=== PATIENT | female | born 1970 ===

== ENCOUNTER 2018-05-22 08:24 | Emergency (ER) | payer OTHER ==
[2018-05-22 08:33] VITALS: BP 144/85; PULSE 81; RESP 17; TEMP 98.1; O2SAT 97
--- NOTE | 2018-05-22 09:32 | C.PDOC ---
History Of Present Illness 47 year old female presents to ED for evaluation of bilateral breast pain that started yesterday, described as burning sensation L > R. She reports clear discharge from right breast yesterday. Denies redness, bumps, lumps, or fever. Denies chest pain, sob, rash. Denies similar episode in the past. Last menses for 16 years s/p hysterectomy. 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[employer]) History/Exam Limitations: no limitations Onset/Duration Of Symptoms: Days Current Symptoms Are (Timing): Still Present Additional History Per: Patient Past Medical History Reviewed: Historical Data, Nursing Documentation, Vital Signs Vital Signs: Last Vital Signs Temp 98.1 F 05/22/18 08:32 Pulse 81 05/22/18 08:32 Resp 17 05/22/18 08:32 BP 144/85 05/22/18 08:32 Pulse Ox 97 05/22/18 10:46 - Medical History PMH: Asthma Family History: States: Unknown Family Hx - Social History Hx Alcohol Use: No Hx Substance Use: No Review Of Systems Except As Marked, All Systems Reviewed And Found Negative. Constitutional: Negative for: Fever, Chills Musculoskeletal: Positive for: Other (Breast pain) Physical Exam - Physical Exam Appears: Non-toxic, No Acute Distress Skin: Normal Color, Warm, Dry Head: Atraumatic, Normacephalic Eye(s): bilateral: Normal Inspection, EOMI Nose: Normal Oral Mucosa: Moist Neck: Normal ROM, Supple Chest: Symmetrical, No Deformity, Tenderness (diffuse tenderness to bilateral breasts, no discharge, no dimpling, no erythema, no lumps), No Ecchymosis Cardiovascular: Rhythm Regular Respiratory: Normal Breath Sounds, No Rales, No Rhonchi, No Wheezing Gastrointestinal/Abdominal: Soft, No Tenderness Extremity: Normal ROM Neurological/Psych: Oriented x3, Normal Speech ED Course And Treatment O2 Sat by Pulse Oximetry: 97 (RA) Pulse Ox Interpretation: Normal Progress Note: Pt is being discharged home with instructions to 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 Disposition - Disposition Referrals: [facility] at [facility] [Outside] Disposition: HOME/ ROUTINE Disposition Time: 09:30 Condition: STABLE Additional Instructions: Jonah segura o la clnica en 1-3 snow sin falta, para mas evaluacin. [place] los medicamentos rod indicado. Volver a la taniya de emergencia en cualquier momento si los sntomas persisten o empeoran. Prescriptions: Naproxen [Naprosyn] 1 tab PO BID PRN #20 tab PRN Reason: Pain Instructions: Mastalgia (DC) Forms: Docin (Romansh) Print Language: TAJIK - Clinical Impression Clinical Impression: Pain of breast - PA / PLASTIC MANAGER / Resident Statement MD/DO has reviewed & agrees with the documentation as recorded. - Scribe Statement The provider has reviewed the documentation as recorded by the Scribe Swapna Arce All medical record entries made by the Scribe were at my direction and personally dictated by me. I have reviewed the chart and agree that the record accurately reflects my personal performance of the history, physical exam, medical decision making, and the department course for this patient. I have also personally directed, reviewed, and agree with the discharge instructions and disposition.
== END 2018-05-22 09:48 | disposition home or self-care (01) ==
LOC: C.ER 08:24
DX: N64.4 Mastodynia (principal)

== ENCOUNTER 2018-10-20 19:08 | Emergency (ER) | payer OTHER ==
[2018-10-20 19:17] VITALS: O2SAT 100
--- NOTE | 2018-10-20 19:33 | C.PDOC ---
Time Seen by Provider: 10/20/18 19:20 Chief Complaint (Nursing): Abdominal Pain Past Medical History Vital Signs: Last Vital Signs Temp 97.9 F 10/20/18 19:12 Pulse 91 H 10/20/18 19:12 Resp 20 10/20/18 19:12 BP 120/86 10/20/18 19:12 Pulse Ox 100 10/20/18 19:12 - Medical History PMH: Asthma Family History: States: Unknown Family Hx - Social History Hx Alcohol Use: No Hx Substance Use: No - Immunization History Hx Tetanus Toxoid Vaccination: No Hx Influenza Vaccination: No Hx Pneumococcal Vaccination: No ED Course And Treatment O2 Sat by Pulse Oximetry: 100 Progress - Data Reviewed Data Reviewed: Lab, Diagnostic imaging Disposition - Disposition
--- NOTE | 2018-10-20 19:35 | C.PDOC ---
History Of Present Illness 48 y/o female presents to the ER complaining of abdominal pain and nausea which has been present for the past 3 days. Patient states that the pain is localized to the LLQ. Patient reports that she had her last bm 2 days ago, she states that this is consistent with her normal pattern.Denies having vomiting, dysuria, hematuria, fever,and chills. Of note, patient has surgical history of and hysterectomy. Time Seen by Provider: 10/20/18 19:20 Chief Complaint (Nursing): Abdominal Pain History Per: Patient History/Exam Limitations: no limitations Onset/Duration Of Symptoms: Days Current Symptoms Are (Timing): Still Present Severity: Moderate Location Of Pain/Discomfort: LLQ Radiation Of Pain To:: None Associated Symptoms: Nausea. denies: Fever, Chills, Vomiting, Urinary Symptoms Past Medical History Reviewed: Historical Data, Nursing Documentation, Vital Signs Vital Signs: Last Vital Signs Temp 97.9 F 10/20/18 19:12 Pulse 91 H 10/20/18 19:12 Resp 20 10/20/18 19:12 BP 120/86 10/20/18 19:12 Pulse Ox 100 10/20/18 19:12 - Medical History PMH: Asthma Other Surgeries: Hx of surgeries Family History: States: No Known Family Hx - Social History Hx Alcohol Use: No Hx Substance Use: No - Immunization History Hx Tetanus Toxoid Vaccination: No Hx Influenza Vaccination: No Hx Pneumococcal Vaccination: No Review Of Systems Except As Marked, All Systems Reviewed And Found Negative. Constitutional: Negative for: Fever, Chills Gastrointestinal: Positive for: Nausea, Abdominal Pain. Negative for: Vomiting, Diarrhea Genitourinary: Negative for: Dysuria, Hematuria Physical Exam - Physical Exam Appears: Non-toxic, Other (mild distress) Skin: Normal Color, Warm, Dry Head: Atraumatic, Normacephalic Eye(s): bilateral: Normal Inspection Cardiovascular: Rhythm Regular Respiratory: Normal Breath Sounds, No Rales, No Rhonchi, No Wheezing Gastrointestinal/Abdominal: Soft, Tenderness (LUQ tenderness), No Guarding, No Rebound Neurological/Psych: Oriented x3, Normal Speech ED Course And Treatment - Laboratory Results Result Diagrams: 10/20/18 19:44 10/20/18 19:44 O2 Sat by Pulse Oximetry: 100 (RA) Pulse Ox Interpretation: Normal - CT Scan/US CT abd/pelvis Other Rad Studies (CT/US): Read By Radiologist, Radiology Report Reviewed CT/US Interpretation: EXAM: CT Abdomen with IV contrast. CLINICAL HISTORY: LLQ abdominal pain. TECHNIQUE: Axial computed tomography images of the abdomen and pelvis with intravenous contrast. 0.00 mGy-cm. CONTRAST: With; VISI 320 100MLS. COMPARISON: None provided. FINDINGS: LUNG BASES: Heart normal size, pulmonary bases well-aerated. LIVER: Unremarkable. GALLBLADDER AND BILE DUCTS: The gallbladder appears within normal limits. No radioopaque gallstones are seen. No biliary ductal dilatation is evident. PANCREAS: Unremarkable. SPLEEN: Unremarkable. ADRENAL GLANDS: Unremarkable. KIDNEYS, URETERS, AND BLADDER: The kidneys appear within normal limits. There is no hydronephrosis or hydroureter. No urinary calculi are seen. STOMACH AND BOWEL: Unremarkable appearance of the stomach and bowel. No evidence of bowel obstruction. No evidence suggesting enteritis or colitis. APPENDIX: No evidence of acute appendicitis on CT examination. PERITONEUM: No free fluid. No free air. LYMPH NODES: No lymphadenopathy is evident. VASCULATURE: No evidence of abdominal aortic aneurysm. BONES: No aggressive appearing osseous lesion. No acute osseous pathology evident. MISCELLANEOUS: Status post hysterectomy, no free pelvic fluid. IMPRESSION: 1. Status post hysterectomy, no free pelvic fluid. 2. Heart normal size, pulmonary bases well-aerated. 3. An inflammatory focus within the abdomen is not identified. . Electronically signed on Oct 20, 2018 10:08:08 PM EST by: Steven Voss M.D., Certified by [facility] Progress - Data Reviewed Data Reviewed: Lab, Diagnostic imaging Medical Decision Making Medical Decision Making: Plan: --Labs --UA --CT- Abd & Pelv. --Morphine IV --Zofran IV Disposition Counseled Patient/Family Regarding: Studies Performed, Diagnosis, Need For Followup, Rx Given - Disposition Referrals: [facility] [Outside] [facility] [Outside] Disposition: HOME/ ROUTINE Disposition Time: 22:10 Condition: IMPROVED Prescriptions: Dicyclomine [Bentyl] 20 mg PO TID PRN #12 tab PRN Reason: Pain Ondansetron ODT [Zofran ODT] 4 mg PO TID PRN #12 odt PRN Reason: Nausea/Vomiting Instructions: Acute Abdomen (Belly Pain), Adult (DC) Forms: [employer] (Yi) Print Language: ECUADOREAN - Clinical Impression Clinical Impression: Abdominal pain - Scribe Statement The provider has reviewed the documentation as recorded by the Wendiibe Bernabe Salgado Provider Attestation: All medical record entries made by the Wendiibe were at my direction and personally dictated by me. I have reviewed the chart and agree that the record accurately reflects my personal performance of the history, physical exam, medical decision making, and the department course for this patient. I have also personally directed, reviewed, and agree with the discharge instructions and disposition.
[2018-10-20] MEDS ORDERED: Morphine 4 MG/ML VIAL ONE (19:47)
[2018-10-20 19:50] LABS: BASO % 0.9 % (0.0-2.0); EOS # 0.1 K/uL (0.0-0.7); EOS % 1.2 % (0.0-4.0); HEMOGLOBIN 14.2 g/dL (11.0-16.0); LYMPH # 2.2 K/uL (1.0-4.3); MEAN CELL VOLUME 88.8 fL (81.0-99.0); MEAN CORPUSCULAR HEMOGLOBIN 29.9 pg (27.0-31.0); MEAN CORPUSCULAR HGB CONC 33.6 g/dL (33.0-37.0); MEAN PLATELET VOLUME 8.1 fL (7.2-11.7); MONO # 0.4 K/uL (0.0-0.8); MONO % 8.5 % (0.0-10.0); NEUT # 2.2 K/uL (1.8-7.0); NEUT % 44.4 % (50.0-75.0); RBC 4.76 Mil/uL (3.80-5.20); RED CELL DISTRIBUTION WIDTH 14.3 % (11.5-14.5); WHITE BLOOD COUNT 4.9 K/uL (4.8-10.8)
[2018-10-20 19:56] LABS: SQUAMOUS EPITHIAL 3 /hpf (0-5); URINE BILIRUBIN NEGATIVE (NEGATIVE); URINE BLOOD NEGATIVE (NEGATIVE); URINE CLARITY Clear (Clear); URINE COLOR Yellow (YELLOW); URINE GLUCOSE (UA) NORMAL (Normal); URINE LEUKOCYTE ESTERASE NEG Leu/uL (Negative); URINE PROTEIN NEGATIVE (NEGATIVE); URINE UROBILINOGEN NORMAL mg/dL (0.2-1.0)
[2018-10-20 20:23] LABS: ALB/GLOB RATIO 1.4 (1.0-2.1); ALBUMIN 4.6 g/dL (3.5-5.0); ALT/SGPT 19 U/L (9-52); AST/SGOT 25 U/L (14-36); BLOOD UREA NITROGEN 11 mg/dL (7-17); CALCIUM 9.3 mg/dl (8.6-10.4); GFR NON-AFRICAN AMERICAN > 60; LIPASE 65 U/L (23-300)
[2018-10-20] MEDS ORDERED: Barium Sulfate Susp 2.1% w/v, 2.0% w/w 450 mL Bottle PO ONE (20:45)
[2018-10-20] MEDS ORDERED: Iodixanol 320 MG/ML 200 ML BOTTLE IV ONE (20:46)
[2018-10-20 21:34] VITALS: RESP 16
[2018-10-20 22:42] VITALS: BP 122/74; PULSE 68; TEMP 98.2
--- NOTE | 2018-10-21 09:08 | CT ---
Date of service: 10/20/2018 PROCEDURE: CT Abdomen and Pelvis with and without intravenous contrast HISTORY: abd pain LUQ/LLQ COMPARISON: None. TECHNIQUE: Axial images of the abdomen were obtained in the pre contrast, portal venous and delayed phases of enhancement. Coronal and sagittal reformats were generated. Contrast dose: Radiation dose: Total exam DLP = 1105.96 mGy-cm. This CT exam was performed using one or more of the following dose reduction techniques: Automated exposure control, adjustment of the mA and/or kV according to patient size, and/or use of iterative reconstruction technique. FINDINGS: LOWER THORAX: Unremarkable. LIVER: Unremarkable. No gross lesion or ductal dilatation. GALLBLADDER AND BILE DUCTS: Unremarkable. PANCREAS: Unremarkable. No gross lesion or ductal dilatation. SPLEEN: Unremarkable. ADRENALS: Unremarkable. No mass. KIDNEYS AND URETERS: Unremarkable. No hydronephrosis. No solid mass. VASCULATURE: Unremarkable. No aortic aneurysm. No aortic atherosclerotic calcification or mural plaque present. BOWEL: Unremarkable. No obstruction. No gross mural thickening. APPENDIX: Normal appendix. PERITONEUM: Unremarkable. No free fluid. No free air. LYMPH NODES: Unremarkable. No enlarged lymph nodes. BLADDER: Unremarkable. REPRODUCTIVE: Hysterectomy. BONES: No acute fracture. OTHER FINDINGS: None. IMPRESSION: Hysterectomy. Unremarkable pre and post contrast enhanced CT of the abdomen and pelvis.
== END 2018-10-20 22:48 | disposition home or self-care (01) ==
LOC: C.ER 19:08
DX: R10.32 Left lower quadrant pain (principal)
CPT/HCPCS: 74177; 80053; 81001; 83690; 84703; 85025; 96374; 96375; 99284; J2270; J2405; Q9966

== ENCOUNTER 2018-11-26 19:17 | Emergency (ER) | payer OTHER ==
[2018-11-26] MEDS ORDERED: Albuterol-Ipratrop 3 mg / 0.5 (3 ml) UD ONE (19:42)
[2018-11-26 19:43] VITALS: BP 141/60; TEMP 99.6; O2SAT 100
[2018-11-26 19:47] VITALS: PULSE 100
[2018-11-26] MEDS ORDERED: Albuterol 0.083% Inhal Sol (2.5 mg/3 mL) UD INH STA (19:52)
[2018-11-26] MEDS ORDERED: Ipratropium 0.02% Inhal Soln (0.5 mg/2.5 ml) UD IH STA (19:55)
[2018-11-26] MEDS ORDERED: Ipratropium 0.02% Inhal Soln (0.5 mg/2.5 ml) UD IH ONE (20:16)
--- NOTE | 2018-11-26 20:16 | C.PDOC ---
History Of Present Illness 48 y/o female presents to the ED complaining of fever, headache, bodyaches, and nasal congestion for 3 days. Patient has PMHx of asthma and also reports wheezing. She has been using inhaler at home without relief. Otherwise she denies any chest pain, nausea, vomiting, diarrhea, rash, neck stiffness, or other complaints. HPI: Influenza Time Seen by Provider: 11/26/18 19:45 Chief Complaint: Flu-like Symptoms Chief Complaint (Provider): Flu-like Symptoms History Per: Patient Exam Limitations: no limitations Onset/Duration Of Symptoms: Days (x 3) Symptoms include: fever, headache, bodyaches, cough, nasal congestion Past Medical History Reviewed: Historical Data, Nursing Documentation, Vital Signs Vital Signs: Last Vital Signs Temp 99.6 F 11/26/18 19:35 Pulse 100 H 11/26/18 19:35 Resp 22 11/26/18 19:35 BP 141/60 11/26/18 19:35 Pulse Ox 100 11/26/18 19:35 - Medical History PMH: Asthma Surgical History: Family History: States: Unknown Family Hx - Social History Hx Alcohol Use: No Hx Substance Use: No - Immunization History Hx Tetanus Toxoid Vaccination: No Hx Influenza Vaccination: No Hx Pneumococcal Vaccination: No Review Of Systems Constitutional: Positive for: Fever. Negative for: Chills, Weakness Eyes: Negative for: Redness, Other (scleral icterus) ENT: Positive for: Nose Congestion. Negative for: Mouth Swelling Cardiovascular: Negative for: Chest Pain Respiratory: Positive for: Cough, Wheezing Gastrointestinal: Negative for: Nausea, Vomiting, Diarrhea Genitourinary: Negative for: Dysuria, Frequency, Hematuria Musculoskeletal: Positive for: Other (Body aches). Negative for: Neck Pain, Back Pain Skin: Negative for: Rash Neurological: Positive for: Headache. Negative for: Weakness, Numbness, Dizziness Physical Exam - Physical Exam Appears: Well, Non-toxic, No Acute Distress Skin: Normal Color, Warm, No Rash Head: Atraumatic, Normacephalic Eye(s): bilateral: Normal Inspection (no scleral icterus), PERRL, EOMI Oral Mucosa: Moist Throat: Normal (No injection or swelling), No Erythema, No Exudate, Other (airway is patent) Neck: Normal ROM, Supple Chest: Symmetrical Cardiovascular: Rhythm Regular (but mildly tachycardic), Other (Normal S1,S2) Respiratory: No Accessory Muscle Use, Wheezing (bilaterally), Other (Dry cough noted, No respiratory distress) Gastrointestinal/Abdominal: Soft, No Distention Back: Other (Ambulating with steady upright gait) Extremity: Bilateral: Atraumatic, Normal ROM Pulses: Left Radial: Normal (2+), Right Radial: Normal (2+) Neurological/Psych: Oriented x3, Normal Cranial Nerves Medical Decision Making Medical Decision Making: Impression: Flu-like symptoms, PMHx of asthma Initial Plan: Flu swab sent to the lab. Patient given duoneb nebulizer treatment x1 and 60 mg PO prednisone. Pending Peak Flow and reassessment. Progress/Updates: Serology reviewed - Flu negative. 21:41 On reevaluation patient is breathing better. Lung sounds improved. Will discharge patient home with albuterol inhaler and oral steroids. - ECG O2 Sat by Pulse Oximetry: 100 (RA) Pulse Ox Interpretation: Normal Disposition Counseled Patient/Family Regarding: Studies Performed, Diagnosis, Need For Followup, Rx Given - Disposition Referrals: [facility] [Outside] Disposition: HOME/ ROUTINE Disposition Time: 21:43 Condition: IMPROVED Prescriptions: Albuterol HFA [Ventolin HFA 90 mcg/actuation (8 g)] 2 puff IH [id number] #1 inhaler Prednisone [Deltasone] 40 mg PO DAILY #6 tablet Instructions: Asthma, Adult (DC), Viral Upper Respiratory Infection, Adult (DC) Forms: [employer]m (Lithuanian) Print Language: PORTUGUESE - Clinical Impression Clinical Impression: Asthma attack, URI, acute - PA / ETHICAL HACKER / Resident Statement MD/DO has reviewed & agrees with the documentation as recorded. - Scribe Statement The provider has reviewed the documentation as recorded by the Scribolesya Sotomayor All medical record entries made by the Wendiibolesya were at my direction and personally dictated by me. I have reviewed the chart and agree that the record accurately reflects my personal performance of the history, physical exam, medical decision making, and the department course for this patient. I have also personally directed, reviewed, and agree with the discharge instructions and disposition.
[2018-11-26 22:26] VITALS: RESP 20
--- NOTE | 2018-11-27 08:23 | RAD ---
Chest x-ray two views HISTORY: Pneumonia. COMPARISON: None available. FINDINGS: Mild venous congestion. Heart size within normal limits. Tortuous aorta. Bilateral hilar prominence. Impression: Mild venous congestion.
--- NOTE | 2018-11-28 19:56 | CARD ---
APPROVED REPORT Date of service: 11/26/2018 EKG Measurement Heart [id number] <Conclusion> Normal sinus rhythm Normal ECG
== END 2018-11-26 22:25 | disposition home or self-care (01) ==
LOC: C.ER 19:17
DX: J45.909 Unspecified asthma, uncomplicated (principal); J06.9 Acute upper respiratory infection, unspecified